=== PATIENT | male | born 1995 | race Caucasian/White ===

== ENCOUNTER 2024-06-02 11:35 | Emergency (ER) | payer OTHER, SELFPAY ==
[2024-06-02 11:44] VITALS: BP 129/77; PULSE 70; RESP 16; TEMP 36.4; O2SAT 99; BMI 26.0
--- NOTE | 2024-06-02 11:45 | ED.GENADULT ---
HPI - General Adult General Chief complaint: Skin/Abscess/Foreign Body Stated complaint: face swelling-pain Source: patient Mode of arrival: ambulatory Limitations: no limitations History of Present Illness HPI narrative: Patient is a 29-year-old male who presents emergency department for evaluation of swelling to the right cheek. Onset was 3 days ago precipitated by rhinorrhea and cough. Swelling has progressively worse today. Denies associated dental pain. Denies ear pain, changes in hearing. Denies fevers or chills. Related Data Previous Rx's ?Medication ?Instructions ?Recorded amoxicillin 875 mg-potassium 1 tab PO BID #14 tabs 06/02/24 clavulanate 125 mg tablet Allergies Allergy/AdvReac Type Severity Reaction Status Date / Time No Known Allergies Allergy Verified 06/02/24 11:46 Review of Systems Review of Systems: Yes all other systems are reviewed and are negative FOR[facility]LY [facility] Past Medical History Attestation statement: The following information was validated with the patient. Source: old records reviewed Social History Social History Advance Directives: No Advance Directives Information Provided: Yes Do you have a plan to hurt others: No Plan Physical Exam ED Vital Signs: Vital Signs - 24 hr 06/02/24 11:44 Temperature 97.6 F Pulse Rate 70 Respiratory Rate 16 Blood Pressure 129/77 Pulse Oximetry 99 Oxygen Delivery Method Room Air BMI result Body Mass Index 26.0 Appearance: Alert.?Oriented to person, place and time. No acute distress.?Normal affect. Eyes: Pupils equal, round and reactive to light.? EOMI. No nystagmus. ENT: Pharynx normal.??Uvula midline. No trismus. No drooling. Significant tenderness upon palpation over the right maxillary sinus with localized swelling over the cheek without erythema or warmth. No Gingival erythema or fluctuance. Dentition normal except Missing tooth #6 Neck: Normal inspection.? Neck supple.? No cervical adenopathy. ? CVS: Heart sounds normal. Normal heart rate and rhythm.? Pulses normal.?? Respiratory: No respiratory distress.? Lung sounds clear to auscultation bilaterally?? Abdomen: Soft and non-tender. Normoactive bowel sounds. ? Skin: Skin warm and dry.? Normal skin color.? Extremities: No lower extremity edema.? Neuro: Moves all extremities spontaneously. Sensation intact bilaterally. No focal neuro deficits. Ambulates with normal steady gait. Medical Decision Making Medical Decision Making [facility] Narrative: Patient is a 29-year-old male presents emergency department for evaluation of right facial swelling and pain as per HPI. On examination he has tenderness upon palpation over the right maxillary sinus, no palpable nodule mass or areas notable fluctuance over the cheek. Oral examination is overall reassuring aside from a missing tooth #6 which fell out 4-5 months ago. He states that he has not had any complications or pain with this. There is no gingival erythema, areas of fluctuance to suggest obvious dental abscess, the socket is well healed. Discussed with patient the possibility of sinusitis given his preceding upper respiratory symptoms prior to this onset, versus potential dental abscess. Reviewed conservative treatment, we will cover with Augmentin, discussed return precautions and potential follow-up with dental provider should symptoms not resolve. He is nontoxic, afebrile. No respiratory distress. Differential Diagnosis Differential Diagnoses: The differential diagnosis associated with the presentation includes (See narrative above) External Record Review External record reviewed: Outpatient record Prescription Management I considered prescription management with: Pain Medication and Antibiotic Discharge Plan Discharge Clinical Impression: Acute maxillary sinusitis Qualifiers: Recurrence: non-recurrent Qualified Code(s): J01.00 - Acute maxillary sinusitis, unspecified Patient Disposition: Home, Self-Care Instructions: Sinusitis (ED) Additional Instructions: Warm moist compresses to this area. You can take ibuprofen 200 mg, 3 tablets (600mg) every 6-8 hours as needed for pain, in addition to Tylenol 500 mg, 2 tablets (1,000mg) every 4-6 hours as needed for pain, but not to exceed 3 doses daily (3,000mg).? A prescription for antibiotic was sent to your pharmacy please complete the entire course. As discussed, is likely that this is an infection of your sinus, please have this re-evaluated promptly if it gets significantly worse suddenly, rehab new or worsening symptoms or concerns. Given the recent loss of your tooth to this area there is a possibility that there may be an abscess or a fluid collection that is higher of the we are not able to visualize, however your oral exam is very reassuring at this time. If symptoms persist you may is well follow-up with a dental provider for further evaluation of such. Prescriptions: New amoxicillin-pot clavulanate 875-125 mg tablet 1 tab PO BID Qty: 14 0RF Referrals: Physician,None [Primary Care Provider] - Discharge Date/Time: 06/02/24 12:06 Print Language: Croatian
== END 2024-06-02 12:06 | disposition home or self-care (01) ==
PROVIDERS: Emergency Provider Emergency Medicine
DX: J01.00 Acute maxillary sinusitis, unspecified (principal); J34.89 Other specified disorders of nose and nasal sinuses; R05.9 Cough, unspecified
CPT/HCPCS: 99281; 99283